=== PATIENT | female | born 1990 | race Caucasian/White ===

== ENCOUNTER 2016-11-20 20:51 | Emergency (ER) | payer OTHER ==
[~2016-11-20 20:51] MED LIST: /ESCI10TA PO; /QUET25TA PO; CELE50CA PO; CIPR-250 PO; DIAM500C PO; LEXAPRO PO; NORC5TAB PO; RELP20TA PO; RELPAX PO; SERO1TAB3 PO; SERO50TA PO; SEROQUEL PO; SOMA350T PO; TYLE325T5 PO; TYLE650T30 PO; ZANA2CAP PO; mirena IU
[2016-11-20] MEDS ORDERED: METOCLOPRAMIDE 10 MG TAB As Ordered ONE (22:59)
[2016-11-20] MEDS ORDERED: predniSONE 20 MG TAB As Ordered ONE (22:59)
[2016-11-20] MEDS ORDERED: NAPROXEN 250 MG TAB As Ordered ONE (22:59)
--- NOTE | 2016-11-20 23:31 | EDDOCDS ---
Nurse's Notes [facility] Name: Geeta Summers Age: 26 yrs Sex: Female : 1990 Arrival Date: 11/20/2016 Time: 20:51 Bed TR8 Private MD: [facility] [place] Diagnosis: Acute nasopharyngitis [common cold];Migraine Presentation: 11/20 20:58 Presenting complaint: Patient states: Sick since November 13--cough, stuffy nose, sore mcp throat. Today migraine headache started. This patient has no additional risk factors. Adult Sepsis Screening: The patient does not have new or worsening altered mentation. Patient's respiratory rate is less than 22. Systolic blood pressure is greater than 100. Patient has a qSOFA score of 0- Negative Sepsis Screen. Suicide/Homicide risk assessment- the patient denies having any suicidal and/or homicidal ideations and does not present with any other emotional, behavioral or mental health complaints. 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 Transition of care: patient was not received from another setting of care. 20:58 Acuity: BETTY Level 4 [facility] 20:58 Method Of Arrival: Walkin/Carried/Asstd [facility] Triage Assessment: 21:01 Headache History: This headache is like all previous headaches. General: Appears mcp uncomfortable, Behavior is cooperative. Pain: Location: head Pain currently is 9 out of 10 on a pain scale. Pain began this am Also complains of photophobia. HIV screening NA for this visit Offered previously. Neurological: Reports headache. Respiratory: Airway is patent Respiratory effort is even, unlabored. Derm: Skin is pink, warm & dry. 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 hydroxyzine HCl 25 mg Oral tab 1 tab 2. Lyrica Oral 50 mg 3 times per day 3. meloxicam 15 mg oral tab 1 tab once daily 4. Mirena 20 mcg/24 hr (5 years) intrauterine IUD 5. Prazosin Oral 1 cap nightly 6. propranolol 20 mg Oral tab 2 times per day 7. trazodone 50 mg oral tab 1 tab 2 times per day 8. Zanaflex 2 mg Oral cap every 6 hours - PMHx: Anxiety; Depression; Migraines; nerve pain chronic; tremors; - PSHx: brain surgery x3; Tonsillectomy; Breast Reduction; Endoscopy, Upper; - Social history: Smoking status: Patient uses tobacco products, light tobacco smoker. No barriers to communication noted, The patient speaks fluent Botswanan. - Family history: Not pertinent. - : The pt / caregiver states he / she is not on anticoagulants. Home medication list is obtained from the patient. - Exposure Risk Screening:: None identified. Screenin:56 Infection Control. [facility] 23:24 Screening information is obtained from the patient. Fall risk: No risks identified. [facility] Assistance ADL's: requires no assistance with activities of daily living. Abuse/DV Screen: The patient / caregiver reports he/she is: not in a situation that causes fear, pain or injury. Nutritional screening: No deficits noted. Advance Directives: There is no active DNR order. home support is adequate. Assessment: 23:24 General: Appears in no apparent distress, Behavior is crying, reviewed discharge [facility] instructions with patient who states 'the medications they gave me won't work' and "I can't believe they're going to let me leave with a migraine". related concerns to provider and provider visited patient again to review plan of care. discharged per plan. Pain: Location: head Pain currently is 10 out of 10 on a pain scale. Pain: Also complains of no other associated symptoms. Neurological: Level of Consciousness is awake, alert, Oriented to person, place, time. Respiratory: Airway is patent Respiratory effort is even, unlabored, Respiratory pattern is regular, symmetrical. Derm: Skin is pink, warm & dry. Vital Signs: 20:52 BP 142 / 89; Pulse 108; Resp 20; Temp 99.2(O); Pulse Ox 98% on R/A; Weight 90.72 kg; [facility] Height 5 ft. 2 in. (157.48 cm); Pain 9/10; 23:24 BP 124 / 77; Pulse 66; Resp 16; Temp 97.2; Pulse Ox 97% ; Pain 10/10; [facility] 20:52 Body Mass Index 36.58 (90.72 kg, 157.48 cm) [facility] Vitals: 20:52 Log In Time: November 20, 2016 at 20:47. [facility] ED Course: 20:52 Patient visited by Jeni Sierra PCA. elp 20:52 [facility] is Private Physician. elp 20:52 Patient moved to Waiting elp 20:54 Patient visited by Jeni Sierra PCA. elp 20:54 Patient moved to Pre RCE elp 20:59 Triage Initiated mcp 21:02 Patient visited by Tara Wise RN. mcp 22:49 Patient moved to Triage 2 jb5 22:50 Patient visited by Gail Mayfield PCA. jb5 22:51 [facility] cc[facility] 22:51 Pramod Jane DO is Attending Physician. cc10 22:51 Patient visited by Pawan Bowen PA-C. cc10 22:51 Patient visited by Pawan Bowen PA-C. cc10 22:56 [facility] is Referral Physician. cc10 23:22 Patient moved to TR8 cz 23:24 The patient / caregiver is instructed regarding the plan of care and ED course. [facility] 23:24 No IV's were initiated during this patient's visit. No procedures done that require [facility] assistance. Administered Medications: 23:10 Drug: Metoclopramide 10 mg [metoclopramide 10 mg tablet (1 tabs)] Route: PO; [facility] 23:30 Follow up: Response: Pt left department before re-evaluation is appropriate [facility] 23:10 Drug: Naproxen 500 mg [naproxen 250 mg tablet (2 tabs)] Route: PO; [facility] 23:30 Follow up: Response: Pt left department before re-evaluation is appropriate [facility] 23:10 Drug: predniSONE 20 mg Route: PO; [facility] 23:30 Follow up: Response: Pt left department before re-evaluation is appropriate [facility] Order Results: There are currently no results for this order. Outcome: 22:56 Discharge ordered by Provider. cc10 23:24 Discharge Assessment: Patient awake, alert and oriented x 3. No cognitive and/or cj functional deficits noted. Patient verbalized understanding of disposition instructions. patient administered narcotics - no. The following High Risk Discharge criteria are identified: None. Discharged to home ambulatory. Condition: good Condition: stable Condition: improved. Discharge instructions given to patient, Instructed on discharge instructions, follow up and referral plans. medication usage, Demonstrated understanding of instructions, medications, Patient was not receptive of discharge instructions. Other see general assessment note Prescriptions given X 3. No special radiology studies were completed. Property :Personal belongings accompany Pt. 23:30 Patient left the ED. [facility] Signatures: Tara Wise RN RN mcp Zecher, Calvin, Gail Jarvis RN, RN SURGICAL PCU RN SURGICAL PCU jb5 Regina Taylor RN RN [facility] Jeni Sierra, RN SURGICAL PCU RN SURGICAL PCU Pawan Devlin, PA-C PA-C cc10 MTDD
--- NOTE | 2016-11-20 23:31 | EDDOCDS ---
Physician Documentation [facility] Name: Geeta Summers Age: 26 yrs Sex: Female : 1990 Arrival Date: 11/20/2016 Time: 20:51 Bed TR8 Private MD: [facility] Disposition: 11/20/16 22:56 Discharged to Home/Self Care. Impression: Acute nasopharyngitis [common cold], Migraine. - Condition is Stable. - Discharge Instructions: Upper Respiratory Infection, Adult, Viral Infections, Cough, Adult, [id number]. - Prescriptions for ZOFRAN ODT 4 mg - dissolve 1 tablet by ORAL route 4 times per day As needed do not chew, do not swallow whole; 10 tablet. Prednisone 20 mg Oral Tablet - take 1 tablet by ORAL route once daily for 5 days; 5 tablet. Fluticasone 50 mcg/actuation Nasal [place], Suspension - inhale 2 spray by INTRANASAL route once daily; 1 bottle. - Medication Reconciliation form. - Follow up: Emergency Department; When: As needed. Follow up: [facility]; When: Call to arrange an appointment; Reason: Wound/Symptom Recheck, Recheck today's complaints, Worsening of conditions, Continuance of care. - Problem is new. - Symptoms are unchanged. Historical: - Allergies: Morphine (Swelling); - Home Meds: 1. hydroxyzine HCl 25 mg Oral tab 1 tab 2. Lyrica Oral 50 mg 3 times per day 3. meloxicam 15 mg oral tab 1 tab once daily 4. Mirena 20 mcg/24 hr (5 years) intrauterine IUD 5. Prazosin Oral 1 cap nightly 6. propranolol 20 mg Oral tab 2 times per day 7. trazodone 50 mg oral tab 1 tab 2 times per day 8. Zanaflex 2 mg Oral cap every 6 hours - PMHx: Anxiety; Depression; Migraines; nerve pain chronic; tremors; - PSHx: brain surgery x3; Tonsillectomy; Breast Reduction; Endoscopy, Upper; - Social history: Smoking status: Patient uses tobacco products, light tobacco smoker. No barriers to communication noted, The patient speaks fluent Czech. - Family history: Not pertinent. - : The pt / caregiver states he / she is not on anticoagulants. Home medication list is obtained from the patient. - Exposure Risk Screening:: None identified. 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 2 in. (157.48 cm); Pain 9/10; 23:24 BP 124 / 77; Pulse 66; Resp 16; Temp 97.2; Pulse Ox 97% ; Pain 10/10; cjh 20:52 Body Mass Index 36.58 (90.72 kg, 157.48 cm) elp MDM: 22:55 Metoclopramide 10 mg PO once ordered. cc10 22:55 Naproxen 500 mg PO once; administer with food or milk ordered. cc10 22:55 predniSONE 20 mg PO once; administer with food or milk ordered. cc10 Administered Medications: 23:10 Drug: Metoclopramide 10 mg [metoclopramide 10 mg tablet (1 tabs)] Route: PO; [facility] 23:30 Follow up: Response: Pt left department before re-evaluation is appropriate [facility] 23:10 Drug: Naproxen 500 mg [naproxen 250 mg tablet (2 tabs)] Route: PO; [facility] 23:30 Follow up: Response: Pt left department before re-evaluation is appropriate [facility] 23:10 Drug: predniSONE 20 mg Route: PO; [facility] 23:30 Follow up: Response: Pt left department before re-evaluation is appropriate [facility] Signatures: Tara Wise RN RN [facility] Regina Taylor RN RN [facility] Pawan Bowen, PADeonteC PA-C cc10 MTDD
--- NOTE | 2016-11-24 10:12 | EDDOCDS ---
Nurse's Notes [facility] Name: Geeta Summers Age: 26 yrs Sex: Female : 1990 Arrival Date: 11/20/2016 Time: 20:51 Bed TR8 Private MD: [facility] Diagnosis: Acute nasopharyngitis [common cold];Migraine Presentation: 11/20 20:58 Presenting complaint: Patient states: Sick since November 13--cough, stuffy nose, sore mcp throat. Today migraine headache started. This patient has no additional risk factors. Adult Sepsis Screening: The patient does not have new or worsening altered mentation. Patient's respiratory rate is less than 22. Systolic blood pressure is greater than 100. Patient has a qSOFA score of 0- Negative Sepsis Screen. Suicide/Homicide risk assessment- the patient denies having any suicidal and/or homicidal ideations and does not present with any other emotional, behavioral or mental health complaints. 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 Transition of care: patient was not received from another setting of care. 20:58 Acuity: BETTY Level 4 [facility] 20:58 Method Of Arrival: Walkin/Carried/Asstd [facility] Triage Assessment: 21:01 Headache History: This headache is like all previous headaches. General: Appears mcp uncomfortable, Behavior is cooperative. Pain: Location: head Pain currently is 9 out of 10 on a pain scale. Pain began this am Also complains of photophobia. HIV screening NA for this visit Offered previously. Neurological: Reports headache. Respiratory: Airway is patent Respiratory effort is even, unlabored. Derm: Skin is pink, warm & dry. 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 hydroxyzine HCl 25 mg Oral tab 1 tab 2. Lyrica Oral 50 mg 3 times per day 3. meloxicam 15 mg oral tab 1 tab once daily 4. Mirena 20 mcg/24 hr (5 years) intrauterine IUD 5. Prazosin Oral 1 cap nightly 6. propranolol 20 mg Oral tab 2 times per day 7. trazodone 50 mg oral tab 1 tab 2 times per day 8. Zanaflex 2 mg Oral cap every 6 hours - PMHx: Anxiety; Depression; Migraines; nerve pain chronic; tremors; - PSHx: brain surgery x3; Tonsillectomy; Breast Reduction; Endoscopy, Upper; - Social history: Smoking status: Patient uses tobacco products, light tobacco smoker. No barriers to communication noted, The patient speaks fluent Zambian. - Family history: Not pertinent. - : The pt / caregiver states he / she is not on anticoagulants. Home medication list is obtained from the patient. - Exposure Risk Screening:: None identified. Screenin:56 Infection Control. [facility] 23:24 Screening information is obtained from the patient. Fall risk: No risks identified. [facility] Assistance ADL's: requires no assistance with activities of daily living. Abuse/DV Screen: The patient / caregiver reports he/she is: not in a situation that causes fear, pain or injury. Nutritional screening: No deficits noted. Advance Directives: There is no active DNR order. home support is adequate. Assessment: 23:24 General: Appears in no apparent distress, Behavior is crying, reviewed discharge [facility] instructions with patient who states 'the medications they gave me won't work' and "I can't believe they're going to let me leave with a migraine". related concerns to provider and provider visited patient again to review plan of care. discharged per plan. Pain: Location: head Pain currently is 10 out of 10 on a pain scale. Pain: Also complains of no other associated symptoms. Neurological: Level of Consciousness is awake, alert, Oriented to person, place, time. Respiratory: Airway is patent Respiratory effort is even, unlabored, Respiratory pattern is regular, symmetrical. Derm: Skin is pink, warm & dry. Vital Signs: 20:52 BP 142 / 89; Pulse 108; Resp 20; Temp 99.2(O); Pulse Ox 98% on R/A; Weight 90.72 kg; [facility] Height 5 ft. 2 in. (157.48 cm); Pain 9/10; 23:24 BP 124 / 77; Pulse 66; Resp 16; Temp 97.2; Pulse Ox 97% ; Pain 10/10; [facility] 20:52 Body Mass Index 36.58 (90.72 kg, 157.48 cm) [facility] Vitals: 20:52 Log In Time: November 20, 2016 at 20:47. [facility] ED Course: 20:52 Patient visited by Jeni Sierra PCA. elp 20:52 [facility] is Private Physician. elp 20:52 Patient moved to Waiting elp 20:54 Patient visited by Jeni Sierra PCA. elp 20:54 Patient moved to Pre RCE elp 20:59 Triage Initiated mcp 21:02 Patient visited by Tara Wise RN. mcp 22:49 Patient moved to Triage 2 jb5 22:50 Patient visited by Gail Mayfield PCA. jb5 22:51 [facility] Bowen [facility] cc[facility] 22:51 Pramod Jane DO is Attending Physician. cc10 22:51 Patient visited by Pawan Bowen PA-C. cc10 22:51 Patient visited by Pawan Bowen PA-C. cc10 22:56 [facility] is Referral Physician. cc10 23:22 Patient moved to TR8 cz 23:24 The patient / caregiver is instructed regarding the plan of care and ED course. [facility] 23:24 No IV's were initiated during this patient's visit. No procedures done that require [facility] assistance. 11/21 08:13 T-Sheet-- Draft Copy was scanned into [employer] and attached to record. [facility] Administered Medications: 11/20 23:10 Drug: Metoclopramide 10 mg [metoclopramide 10 mg tablet (1 tabs)] Route: PO; [facility] 23:30 Follow up: Response: Pt left department before re-evaluation is appropriate [facility] 23:10 Drug: Naproxen 500 mg [naproxen 250 mg tablet (2 tabs)] Route: PO; [facility] 23:30 Follow up: Response: Pt left department before re-evaluation is appropriate [facility] 23:10 Drug: predniSONE 20 mg Route: PO; [facility] 23:30 Follow up: Response: Pt left department before re-evaluation is appropriate [facility] Order Results: There are currently no results for this order. Outcome: 22:56 Discharge ordered by Provider. cc 23:24 Discharge Assessment: Patient awake, alert and oriented x 3. No cognitive and/or cjh functional deficits noted. Patient verbalized understanding of disposition instructions. patient administered narcotics - no. The following High Risk Discharge criteria are identified: None. Discharged to home ambulatory. Condition: good Condition: stable Condition: improved. Discharge instructions given to patient, Instructed on discharge instructions, follow up and referral plans. medication usage, Demonstrated understanding of instructions, medications, Patient was not receptive of discharge instructions. Other see general assessment note Prescriptions given X 3. No special radiology studies were completed. Property :Personal belongings accompany Pt. 23:30 Patient left the ED. [facility] Signatures: Tara Wise RN RN mcp Zecher, Calvin, RN RN cz Baker, Janet, NETWORK ADMINISTRATOR NETWORK ADMINISTRATOR jb5 Regina Taylor RN RN [facility] Jeni Sierra, NETWORK ADMINISTRATOR NETWORK ADMINISTRATOR elp Pawan Bowen, PA-C PA-C cc10 Pham Jaquez Chart Complete MTDD
--- NOTE | 2016-11-24 10:12 | EDDOCDS ---
Physician Documentation [facility] Name: Geeta Summers Age: 26 yrs Sex: Female : 1990 Arrival Date: 11/20/2016 Time: 20:51 Bed TR8 Private MD: [facility] Disposition: 11/20/16 22:56 Discharged to Home/Self Care. Impression: Acute nasopharyngitis [common cold], Migraine. - Condition is Stable. - Discharge Instructions: Upper Respiratory Infection, Adult, Viral Infections, Cough, Adult, [id number]. - Prescriptions for ZOFRAN ODT 4 mg - dissolve 1 tablet by ORAL route 4 times per day As needed do not chew, do not swallow whole; 10 tablet. Prednisone 20 mg Oral Tablet - take 1 tablet by ORAL route once daily for 5 days; 5 tablet. Fluticasone 50 mcg/actuation Nasal [place], Suspension - inhale 2 spray by INTRANASAL route once daily; 1 bottle. - Medication Reconciliation form. - Follow up: Emergency Department; When: As needed. Follow up: [facility]; When: Call to arrange an appointment; Reason: Wound/Symptom Recheck, Recheck today's complaints, Worsening of conditions, Continuance of care. - Problem is new. - Symptoms are unchanged. Historical: - Allergies: Morphine (Swelling); - Home Meds: 1. hydroxyzine HCl 25 mg Oral tab 1 tab 2. Lyrica Oral 50 mg 3 times per day 3. meloxicam 15 mg oral tab 1 tab once daily 4. Mirena 20 mcg/24 hr (5 years) intrauterine IUD 5. Prazosin Oral 1 cap nightly 6. propranolol 20 mg Oral tab 2 times per day 7. trazodone 50 mg oral tab 1 tab 2 times per day 8. Zanaflex 2 mg Oral cap every 6 hours - PMHx: Anxiety; Depression; Migraines; nerve pain chronic; tremors; - PSHx: brain surgery x3; Tonsillectomy; Breast Reduction; Endoscopy, Upper; - Social history: Smoking status: Patient uses tobacco products, light tobacco smoker. No barriers to communication noted, The patient speaks fluent Indonesian. - Family history: Not pertinent. - : The pt / caregiver states he / she is not on anticoagulants. Home medication list is obtained from the patient. - Exposure Risk Screening:: None identified. 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 2 in. (157.48 cm); Pain 9/10; 23:24 BP 124 / 77; Pulse 66; Resp 16; Temp 97.2; Pulse Ox 97% ; Pain 10/10; cjh 20:52 Body Mass Index 36.58 (90.72 kg, 157.48 cm) elp MDM: 22:55 Metoclopramide 10 mg PO once ordered. cc10 22:55 Naproxen 500 mg PO once; administer with food or milk ordered. cc10 22:55 predniSONE 20 mg PO once; administer with food or milk ordered. cc10 11/21 08:13 T-Sheet-- Draft Copy was scanned into [employer] and attached to record. se Administered Medications: 11/20 23:10 Drug: Metoclopramide 10 mg [metoclopramide 10 mg tablet (1 tabs)] Route: PO; [facility] 23:30 Follow up: Response: Pt left department before re-evaluation is appropriate [facility] 23:10 Drug: Naproxen 500 mg [naproxen 250 mg tablet (2 tabs)] Route: PO; [facility] 23:30 Follow up: Response: Pt left department before re-evaluation is appropriate [facility] 23:10 Drug: predniSONE 20 mg Route: PO; [facility] 23:30 Follow up: Response: Pt left department before re-evaluation is appropriate [facility] Signatures: Tara Wise RN RN [facility] Regina Taylor RN RN [facility] Pawan Bowen, PAErwin PADeonteC [facility] Pham Jaquez [facility] The chart was reviewed and I authenticate all verbal orders and agree with the evaluation and treatment provided.Attachments: 11/21 08:13 T-Sheet-- Draft Copy [facility] Chart Complete MTDD
--- NOTE | 2016-11-24 10:12 | EDDOCDS ---
Physician Documentation [facility] Name: Geeta Summers Age: 26 yrs Sex: Female : 1990 Arrival Date: 11/20/2016 Time: 20:51 Bed TR8 Private MD: [facility] Disposition: 11/20/16 22:56 Discharged to Home/Self Care. Impression: Acute nasopharyngitis [common cold], Migraine. - Condition is Stable. - Discharge Instructions: Upper Respiratory Infection, Adult, Viral Infections, Cough, Adult, [id number]. - Prescriptions for ZOFRAN ODT 4 mg - dissolve 1 tablet by ORAL route 4 times per day As needed do not chew, do not swallow whole; 10 tablet. Prednisone 20 mg Oral Tablet - take 1 tablet by ORAL route once daily for 5 days; 5 tablet. Fluticasone 50 mcg/actuation Nasal [place], Suspension - inhale 2 spray by INTRANASAL route once daily; 1 bottle. - Medication Reconciliation form. - Follow up: Emergency Department; When: As needed. Follow up: [facility]; When: Call to arrange an appointment; Reason: Wound/Symptom Recheck, Recheck today's complaints, Worsening of conditions, Continuance of care. - Problem is new. - Symptoms are unchanged. Historical: - Allergies: Morphine (Swelling); - Home Meds: 1. hydroxyzine HCl 25 mg Oral tab 1 tab 2. Lyrica Oral 50 mg 3 times per day 3. meloxicam 15 mg oral tab 1 tab once daily 4. Mirena 20 mcg/24 hr (5 years) intrauterine IUD 5. Prazosin Oral 1 cap nightly 6. propranolol 20 mg Oral tab 2 times per day 7. trazodone 50 mg oral tab 1 tab 2 times per day 8. Zanaflex 2 mg Oral cap every 6 hours - PMHx: Anxiety; Depression; Migraines; nerve pain chronic; tremors; - PSHx: brain surgery x3; Tonsillectomy; Breast Reduction; Endoscopy, Upper; - Social history: Smoking status: Patient uses tobacco products, light tobacco smoker. No barriers to communication noted, The patient speaks fluent Icelandic. - Family history: Not pertinent. - : The pt / caregiver states he / she is not on anticoagulants. Home medication list is obtained from the patient. - Exposure Risk Screening:: None identified. 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 2 in. (157.48 cm); Pain 9/10; 23:24 BP 124 / 77; Pulse 66; Resp 16; Temp 97.2; Pulse Ox 97% ; Pain 10/10; cjh 20:52 Body Mass Index 36.58 (90.72 kg, 157.48 cm) elp MDM: 22:55 Metoclopramide 10 mg PO once ordered. cc10 22:55 Naproxen 500 mg PO once; administer with food or milk ordered. cc10 22:55 predniSONE 20 mg PO once; administer with food or milk ordered. cc10 11/21 08:13 T-Sheet-- Draft Copy was scanned into [employer] and attached to record. se Administered Medications: 11/20 23:10 Drug: Metoclopramide 10 mg [metoclopramide 10 mg tablet (1 tabs)] Route: PO; [facility] 23:30 Follow up: Response: Pt left department before re-evaluation is appropriate [facility] 23:10 Drug: Naproxen 500 mg [naproxen 250 mg tablet (2 tabs)] Route: PO; [facility] 23:30 Follow up: Response: Pt left department before re-evaluation is appropriate [facility] 23:10 Drug: predniSONE 20 mg Route: PO; [facility] 23:30 Follow up: Response: Pt left department before re-evaluation is appropriate [facility] Signatures: Tara Wise RN RN [facility] Regina Taylor RN RN [facility] Pawan Bowen, PAErwin PADeonteC [facility] Pham Jaquez [facility] The chart was reviewed and I authenticate all verbal orders and agree with the evaluation and treatment provided.Attachments: 11/21 08:13 T-Sheet-- Draft Copy [facility] Chart Complete MTDD
== END 2016-11-20 23:30 | disposition home or self-care (01) ==
LOC: M ED 20:51
DX: J06.9 Acute upper respiratory infection, unspecified (principal); F41.9 Anxiety disorder, unspecified; F32.9 Major depressive disorder, single episode, unspecified; G52.9 Cranial nerve disorder, unspecified; G43.909 Migraine, unspecified, not intractable, without status migrainosus; R25.1 Tremor, unspecified; Z72.0 Tobacco use; Z79.899 Other long term (current) drug therapy; Z88.5 Allergy status to narcotic agent

== ENCOUNTER 2016-12-13 21:27 | Emergency (ER) | payer OTHER ==
[2016-12-13] MEDS ORDERED: OSELTAMIVIR PHOSPHATE 75 MG CAP (TAMIFLU) As Ordered ONE (22:14)
--- NOTE | 2016-12-13 22:27 | EDDOCDS ---
Nurse's Notes [facility] Name: Geeta Summers Age: 26 yrs Sex: Female : 1990 Arrival Date: 12/13/2016 Time: 21:27 Bed 8 Private MD: Diagnosis: Influenza due to unidentified influenza virus Presentation: 12/13 21:33 Presenting complaint: Patient states: cough, cold chills for few days. exposure to sick rs3 contacts at work. Adult Sepsis Screening: The patient does not have new or worsening altered mentation. Patient's respiratory rate is less than 22. Systolic blood pressure is greater than 100. Patient has a qSOFA score of 0- Negative Sepsis Screen. Suicide/Homicide risk assessment- the patient denies having any suicidal and/or homicidal ideations and does not present with any other emotional, behavioral or mental health complaints. Status: retired. Transition of care:. 21:33 Acuity: BETTY Level 4 rs3 21:33 Method Of Arrival: Walkin/Carried/Asstd rs3 Triage Assessment: 21:34 General: Appears in no apparent distress. Pain: Location: chest. HIV screening NA for rs3 this visit Offered previously. 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 hydroxyzine HCl 25 mg Oral tab 1 tab 2. Lyrica Oral 50 mg 3 times per day 3. meloxicam 15 mg oral tab 1 tab once daily 4. Mirena 20 mcg/24 hr (5 years) intrauterine IUD 5. Prazosin Oral 1 cap nightly 6. propranolol 20 mg Oral tab 2 times per day 7. trazodone 50 mg Oral tab 1 tab 2 times per day 8. Zanaflex 2 mg Oral cap every 6 hours - PMHx: Anxiety; Depression; Migraines; nerve pain chronic; tremors; - PSHx: brain surgery x3; Tonsillectomy; Breast Reduction; Endoscopy, Upper; - Social history: Smoking status: Patient uses tobacco products, light tobacco smoker. No barriers to communication noted, The patient speaks fluent Syriac. - Family history: Not pertinent. - : The pt / caregiver states he / she is not on anticoagulants. Home medication list is obtained from the patient. - Exposure Risk Screening:: None identified. Screenin:22 Screening information is obtained from the patient. Fall risk: No risks identified. sls1 Assistance ADL's: requires no assistance with activities of daily living. Abuse/DV Screen: The patient / caregiver reports he/she is: not in a situation that causes fear, pain or injury. Nutritional screening: No deficits noted. Advance Directives: Further advance directive information is declined. home support is adequate. Assessment: 22:22 General: Appears in no apparent distress, Behavior is appropriate for age, cooperative, sls1 First encounter with pt, medicated per order, discharge instructions reviewed with pt including medication use, use of tylenol and motrin for fever fluids encouraged, verbalizes understanding of all instructions. Neurological: Level of Consciousness is awake, alert. Respiratory: Airway is patent Respiratory effort is even, unlabored, Respiratory pattern is regular, symmetrical. Derm: No deficits noted. Vital Signs: 21:28 BP 113 / 68; Pulse 120; Resp 20; Temp 99.1(O); Pulse Ox 99% on R/A; Weight 90.72 kg arleen (R); Height 5 ft. 1 in. (154.94 cm) (R); Pain 7/10; 22:22 BP 114 / 62; Pulse 104; Resp 20; Temp 98.1; Pulse Ox 99% on R/A; sls1 21:28 Body Mass Index 37.79 (90.72 kg, 154.94 cm) arleen Vitals: 21:28 Log In Time: December 13, 2016 at 21:15. arleen ED Course: 21:28 Patient visited by Mala Bhat PCA. arleen 21:28 Patient moved to Waiting arleen 21:29 Patient moved to Pre RCE arleen 21:34 Triage Initiated rs3 21:41 [facility] ke 21:41 Patient visited by Ceasar Smith FNP. ke 21:41 Patient visited by Ceasar Smith FNP. ke 21:41 Patient moved to 8 km 22:22 The patient / caregiver is instructed regarding the plan of care and ED course. Patient sls1 has correct armband on for positive identification. 22:22 No IV's were initiated during this patient's visit. No procedures done that require sls1 assistance. Administered Medications: 22:22 Drug: Oseltamivir 75 mg [oseltamivir 75 mg capsule (1 caps)] Route: PO; sls1 22:26 Follow up: Response: Pt left department before re-evaluation is appropriate sls1 Order Results: There are currently no results for this order. Outcome: 22:10 Discharge ordered by Provider. 22:22 Discharge Assessment: Patient awake, alert and oriented x 3. No cognitive and/or sls1 functional deficits noted. Patient verbalized understanding of disposition instructions. patient administered narcotics - no. The following High Risk Discharge criteria are identified: None. Discharged to home ambulatory. Condition: stable. Discharge instructions given to patient, Instructed on discharge instructions, follow up and referral plans. Demonstrated understanding of instructions, medications, Pt was receptive of discharge instructions/ teaching. Prescriptions given X 1. No special radiology studies were completed. Property sent home with patient. 22:[address] [facility] Signatures: Carlota Magdaleno, RN RN kmg1 Ceasar Smith, CLOTH BLEACHING RANGE TENDER CLOTH BLEACHING RANGE TENDER Paula WahlRN RN rs3 Mala Bhat, DESSERT CUP MACHINE FEEDER DESSERT CUP MACHINE FEEDER Latonia Rosas RN RN sls1 MTDAva
--- NOTE | 2016-12-13 22:27 | EDDOCDS ---
Physician Documentation [facility] Name: Geeta Summers Age: 26 yrs Sex: Female : 1990 Arrival Date: 12/13/2016 Time: 21:27 Bed 8 Private MD: Disposition: 12/13/16 22:10 Discharged to Home/Self Care. Impression: Influenza due to unidentified influenza virus. - Condition is Stable. - Discharge Instructions: Influenza, Adult. - Prescriptions for Tamiflu 75 mg Oral Capsule - take 1 capsule by ORAL route every 12 hours for 5 days; 10 capsule. - Medication Reconciliation, Local Pharmacy Hours form. - Follow up: Private Physician; When: 4 - 5 days; Reason: Recheck today's complaints, Continuance of care. - Problem is an ongoing problem. - Symptoms are unchanged. Historical: - Allergies: Morphine (Swelling); - Home Meds: 1. hydroxyzine HCl 25 mg Oral tab 1 tab 2. Lyrica Oral 50 mg 3 times per day 3. meloxicam 15 mg oral tab 1 tab once daily 4. Mirena 20 mcg/24 hr (5 years) intrauterine IUD 5. Prazosin Oral 1 cap nightly 6. propranolol 20 mg Oral tab 2 times per day 7. trazodone 50 mg Oral tab 1 tab 2 times per day 8. Zanaflex 2 mg Oral cap every 6 hours - PMHx: Anxiety; Depression; Migraines; nerve pain chronic; tremors; - PSHx: brain surgery x3; Tonsillectomy; Breast Reduction; Endoscopy, Upper; - Social history: Smoking status: Patient uses tobacco products, light tobacco smoker. No barriers to communication noted, The patient speaks fluent Venezuelan. - Family history: Not pertinent. - : The pt / caregiver states he / she is not on anticoagulants. Home medication list is obtained from the patient. - Exposure Risk Screening:: None identified. 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 1 in. (154.94 cm) (R); Pain 7/10; 22:22 BP 114 / 62; Pulse 104; Resp 20; Temp 98.1; Pulse Ox 99% on R/A; sls1 21:28 Body Mass Index 37.79 (90.72 kg, 154.94 cm) arleen MDM: 21:59 Oseltamivir 75 mg PO once ordered. ke Administered Medications: 22:22 Drug: Oseltamivir 75 mg [oseltamivir 75 mg capsule (1 caps)] Route: PO; sls1 22:26 Follow up: Response: Pt left department before re-evaluation is appropriate [facility] Signatures: Ceasar Smith, CLAIM TAKER Paula DeckerRN RN rs3 Latonia Claudio RN RN sls1 MTDD
--- NOTE | 2016-12-15 23:27 | EDDOCDS ---
Nurse's Notes [facility] Name: Geeta Summers Age: 26 yrs Sex: Female : 1990 Arrival Date: 12/13/2016 Time: 21:27 Bed 8 Private MD: Diagnosis: Influenza due to unidentified influenza virus Presentation: 12/13 21:33 Presenting complaint: Patient states: cough, cold chills for few days. exposure to sick rs3 contacts at work. Adult Sepsis Screening: The patient does not have new or worsening altered mentation. Patient's respiratory rate is less than 22. Systolic blood pressure is greater than 100. Patient has a qSOFA score of 0- Negative Sepsis Screen. Suicide/Homicide risk assessment- the patient denies having any suicidal and/or homicidal ideations and does not present with any other emotional, behavioral or mental health complaints. Status: retired. Transition of care:. 21:33 Acuity: BETTY Level 4 rs3 21:33 Method Of Arrival: Walkin/Carried/Asstd rs3 Triage Assessment: 21:34 General: Appears in no apparent distress. Pain: Location: chest. HIV screening NA for rs3 this visit Offered previously. 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 hydroxyzine HCl 25 mg Oral tab 1 tab 2. Lyrica Oral 50 mg 3 times per day 3. meloxicam 15 mg oral tab 1 tab once daily 4. Mirena 20 mcg/24 hr (5 years) intrauterine IUD 5. Prazosin Oral 1 cap nightly 6. propranolol 20 mg Oral tab 2 times per day 7. trazodone 50 mg Oral tab 1 tab 2 times per day 8. Zanaflex 2 mg Oral cap every 6 hours - PMHx: Anxiety; Depression; Migraines; nerve pain chronic; tremors; - PSHx: brain surgery x3; Tonsillectomy; Breast Reduction; Endoscopy, Upper; - Social history: Smoking status: Patient uses tobacco products, light tobacco smoker. No barriers to communication noted, The patient speaks fluent Kazakh. - Family history: Not pertinent. - : The pt / caregiver states he / she is not on anticoagulants. Home medication list is obtained from the patient. - Exposure Risk Screening:: None identified. Screenin:22 Screening information is obtained from the patient. Fall risk: No risks identified. sls1 Assistance ADL's: requires no assistance with activities of daily living. Abuse/DV Screen: The patient / caregiver reports he/she is: not in a situation that causes fear, pain or injury. Nutritional screening: No deficits noted. Advance Directives: Further advance directive information is declined. home support is adequate. Assessment: 22:22 General: Appears in no apparent distress, Behavior is appropriate for age, cooperative, sls1 First encounter with pt, medicated per order, discharge instructions reviewed with pt including medication use, use of tylenol and motrin for fever fluids encouraged, verbalizes understanding of all instructions. Neurological: Level of Consciousness is awake, alert. Respiratory: Airway is patent Respiratory effort is even, unlabored, Respiratory pattern is regular, symmetrical. Derm: No deficits noted. Vital Signs: 21:28 BP 113 / 68; Pulse 120; Resp 20; Temp 99.1(O); Pulse Ox 99% on R/A; Weight 90.72 kg arleen (R); Height 5 ft. 1 in. (154.94 cm) (R); Pain 7/10; 22:22 BP 114 / 62; Pulse 104; Resp 20; Temp 98.1; Pulse Ox 99% on R/A; sls1 21:28 Body Mass Index 37.79 (90.72 kg, 154.94 cm) arleen Vitals: 21:28 Log In Time: December 13, 2016 at 21:15. arleen ED Course: 21:28 Patient visited by Mala Bhat PCA. arleen 21:28 Patient moved to Waiting arleen 21:29 Patient moved to Pre RCE arleen 21:34 Triage Initiated rs3 21:41 [facility] ke 21:41 Patient visited by Ceasar Smith FNP. ke 21:41 Patient visited by Ceasar Smith FNP. ke 21:41 Patient moved to 8 km 22:22 The patient / caregiver is instructed regarding the plan of care and ED course. Patient sls1 has correct armband on for positive identification. 22:22 No IV's were initiated during this patient's visit. No procedures done that require sls1 assistance. 12/14 11:41 T-Sheet-- Draft Copy was scanned into [employer] and attached to record. gb Administered Medications: 12/13 22:22 Drug: Oseltamivir 75 mg [oseltamivir 75 mg capsule (1 caps)] Route: PO; sls1 22:26 Follow up: Response: Pt left department before re-evaluation is appropriate sls1 Order Results: There are currently no results for this order. Outcome: 22:10 Discharge ordered by Provider. ke 22:22 Discharge Assessment: Patient awake, alert and oriented x 3. No cognitive and/or sls1 functional deficits noted. Patient verbalized understanding of disposition instructions. patient administered narcotics - no. The following High Risk Discharge criteria are identified: None. Discharged to home ambulatory. Condition: stable. Discharge instructions given to patient, Instructed on discharge instructions, follow up and referral plans. Demonstrated understanding of instructions, medications, Pt was receptive of discharge instructions/ teaching. Prescriptions given X 1. No special radiology studies were completed. Property sent home with patient. 22:26 Patient left the ED. sls1 Signatures: Carlota Magdaleno, RN RN kmg1 Kaylee Daugherty, Reg Reg Ceasar Smith, OPTICAL EFFECTS LINE UP PERSON OPTICAL EFFECTS LINE UP PERSON Paula Wahl,RN RN rs3 Mala Bhat, WIRE HARNESS ASSEMBLER WIRE HARNESS ASSEMBLER Latonia Rosas, RN RN sls1 Chart Complete MTDD
--- NOTE | 2016-12-15 23:27 | EDDOCDS ---
Physician Documentation [facility] Name: Geeta Summers Age: 26 yrs Sex: Female : 1990 Arrival Date: 12/13/2016 Time: 21:27 Bed 8 Private MD: Disposition: 12/13/16 22:10 Discharged to Home/Self Care. Impression: Influenza due to unidentified influenza virus. - Condition is Stable. - Discharge Instructions: Influenza, Adult. - Prescriptions for Tamiflu 75 mg Oral Capsule - take 1 capsule by ORAL route every 12 hours for 5 days; 10 capsule. - Medication Reconciliation, Local Pharmacy Hours form. - Follow up: Private Physician; When: 4 - 5 days; Reason: Recheck today's complaints, Continuance of care. - Problem is an ongoing problem. - Symptoms are unchanged. Historical: - Allergies: Morphine (Swelling); - Home Meds: 1. hydroxyzine HCl 25 mg Oral tab 1 tab 2. Lyrica Oral 50 mg 3 times per day 3. meloxicam 15 mg oral tab 1 tab once daily 4. Mirena 20 mcg/24 hr (5 years) intrauterine IUD 5. Prazosin Oral 1 cap nightly 6. propranolol 20 mg Oral tab 2 times per day 7. trazodone 50 mg Oral tab 1 tab 2 times per day 8. Zanaflex 2 mg Oral cap every 6 hours - PMHx: Anxiety; Depression; Migraines; nerve pain chronic; tremors; - PSHx: brain surgery x3; Tonsillectomy; Breast Reduction; Endoscopy, Upper; - Social history: Smoking status: Patient uses tobacco products, light tobacco smoker. No barriers to communication noted, The patient speaks fluent Marshallese. - Family history: Not pertinent. - : The pt / caregiver states he / she is not on anticoagulants. Home medication list is obtained from the patient. - Exposure Risk Screening:: None identified. 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 1 in. (154.94 cm) (R); Pain 7/10; 22:22 BP 114 / 62; Pulse 104; Resp 20; Temp 98.1; Pulse Ox 99% on R/A; sls1 21:28 Body Mass Index 37.79 (90.72 kg, 154.94 cm) arleen MDM: 21:59 Oseltamivir 75 mg PO once ordered. ke 12/14 11:41 T-Sheet-- Draft Copy was scanned into [employer] and attached to record. gb Administered Medications: 12/13 22:22 Drug: Oseltamivir 75 mg [oseltamivir 75 mg capsule (1 caps)] Route: PO; sls1 22:26 Follow up: Response: Pt left department before re-evaluation is appropriate [facility] Signatures: Kaylee Daugherty, Reg Reg gb Ceasar Smith, MARKET RISK SPECIALIST MARKET RISK SPECIALIST Paula WahlRN RN rs3 Latonia Claudio RN RN sls1 The chart was reviewed and I authenticate all verbal orders and agree with the evaluation and treatment provided.Attachments: 12/14 11:41 T-Sheet-- Draft Copy gb Chart Complete MTDD
--- NOTE | 2016-12-15 23:27 | EDDOCDS ---
Physician Documentation [facility] Name: Geeta Summers Age: 26 yrs Sex: Female : 1990 Arrival Date: 12/13/2016 Time: 21:27 Bed 8 Private MD: Disposition: 12/13/16 22:10 Discharged to Home/Self Care. Impression: Influenza due to unidentified influenza virus. - Condition is Stable. - Discharge Instructions: Influenza, Adult. - Prescriptions for Tamiflu 75 mg Oral Capsule - take 1 capsule by ORAL route every 12 hours for 5 days; 10 capsule. - Medication Reconciliation, Local Pharmacy Hours form. - Follow up: Private Physician; When: 4 - 5 days; Reason: Recheck today's complaints, Continuance of care. - Problem is an ongoing problem. - Symptoms are unchanged. Historical: - Allergies: Morphine (Swelling); - Home Meds: 1. hydroxyzine HCl 25 mg Oral tab 1 tab 2. Lyrica Oral 50 mg 3 times per day 3. meloxicam 15 mg oral tab 1 tab once daily 4. Mirena 20 mcg/24 hr (5 years) intrauterine IUD 5. Prazosin Oral 1 cap nightly 6. propranolol 20 mg Oral tab 2 times per day 7. trazodone 50 mg Oral tab 1 tab 2 times per day 8. Zanaflex 2 mg Oral cap every 6 hours - PMHx: Anxiety; Depression; Migraines; nerve pain chronic; tremors; - PSHx: brain surgery x3; Tonsillectomy; Breast Reduction; Endoscopy, Upper; - Social history: Smoking status: Patient uses tobacco products, light tobacco smoker. No barriers to communication noted, The patient speaks fluent South African. - Family history: Not pertinent. - : The pt / caregiver states he / she is not on anticoagulants. Home medication list is obtained from the patient. - Exposure Risk Screening:: None identified. 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 1 in. (154.94 cm) (R); Pain 7/10; 22:22 BP 114 / 62; Pulse 104; Resp 20; Temp 98.1; Pulse Ox 99% on R/A; sls1 21:28 Body Mass Index 37.79 (90.72 kg, 154.94 cm) arleen MDM: 21:59 Oseltamivir 75 mg PO once ordered. ke 12/14 11:41 T-Sheet-- Draft Copy was scanned into [employer] and attached to record. gb Administered Medications: 12/13 22:22 Drug: Oseltamivir 75 mg [oseltamivir 75 mg capsule (1 caps)] Route: PO; sls1 22:26 Follow up: Response: Pt left department before re-evaluation is appropriate [facility] Signatures: Kaylee Daugherty, Reg Reg gb Ceasar Smith, PROJECT GEOPHYSICIST PROJECT GEOPHYSICIST Paula WahlRN RN rs3 Latonia Claudio RN RN sls1 The chart was reviewed and I authenticate all verbal orders and agree with the evaluation and treatment provided.Attachments: 12/14 11:41 T-Sheet-- Draft Copy gb Chart Complete MTDD
== END 2016-12-13 22:26 | disposition home or self-care (01) ==
LOC: M ED 21:27
DX: J11.1 Influenza due to unidentified influenza virus with other respiratory manifestations (principal); F41.9 Anxiety disorder, unspecified; F32.9 Major depressive disorder, single episode, unspecified; M79.2 Neuralgia and neuritis, unspecified; R25.1 Tremor, unspecified; Z79.899 Other long term (current) drug therapy; Z88.5 Allergy status to narcotic agent

== ENCOUNTER 2017-02-19 20:26 | Emergency (ER) | payer OTHER ==
[~2017-02-19] VITALS: Ht 157.5 cm; Wt 90.7 kg
[2017-02-19] MEDS ORDERED: PRAZ1CAP (20:36)
[2017-02-19] MEDS ORDERED: ZOLO100T (20:36)
[2017-02-19] MEDS ORDERED: HYDR10T (20:36)
[2017-02-19] MEDS ORDERED: TRAZ50TA4 (20:36)
[2017-02-19] MEDS ORDERED: PREG50CA PO (20:36)
[2017-02-20 01:18] VITALS: BP 137/84
[2017-02-20] MEDS ORDERED: HYDROmorphone HCL 1 MG/ML SYRINGE (J1170) IV ONE ×2 (01:30→03:30)
[2017-02-20] MEDS ORDERED: diphenhydrAMINE INJ 50MG/ML VIAL (J1200) IV ONE ×2 (01:30→03:30)
[2017-02-20] MEDS ORDERED: METOCLOPRAMIDE INJ 10MG/2ML VIAL (J2765) IV ONE ×2 (01:30→03:30)
[2017-02-20] MEDS ORDERED: KETOROLAC 30 MG/ML VIAL (J1885) IV ONE (01:30)
[2017-02-20] MEDS ORDERED: NS 1,000 ML IV ONE (04:15)
== END 2017-02-20 05:19 | disposition home or self-care (01) ==
LOC: M ED 21:45
DX: G43.909 Migraine, unspecified, not intractable, without status migrainosus (principal); Z79.899 Other long term (current) drug therapy; Z97.5 Presence of (intrauterine) contraceptive device; Z91.018 Allergy to other foods; Z88.5 Allergy status to narcotic agent; F17.210 Nicotine dependence, cigarettes, uncomplicated
CPT/HCPCS: 96374; 96375; 96376; 99282; J1170; J1200; J1885; J2765

== ENCOUNTER 2017-04-26 21:02 | Emergency (ER) | payer OTHER ==
[~2017-04-26] VITALS: Ht 160 cm; Wt 97.7 kg
[~2017-04-26 21:02] MED LIST changes: +HYDR10T; +PRAZ1CAP; +PREG50CA PO; +TRAZ50TA4; +ZOLO100T PO
[2017-04-27] MEDS ORDERED: diphenhydrAMINE INJ 50MG/ML VIAL (J1200) IV STA (03:37)
[2017-04-27] MEDS ORDERED: PROMETHAZINE INJ 25 MG/ML VIAL (J2550) IV ONE (03:45)
[2017-04-27] MEDS ORDERED: KETOROLAC 30 MG/ML VIAL (J1885) IV ONE (03:45)
[2017-04-27] MEDS ORDERED: HYDROmorphone HCL 1 MG/ML SYRINGE (J1170) IV ONE (03:45)
[2017-04-27 05:39] VITALS: BP 121/62
[2017-04-27] MEDS ORDERED: FIOR1CAP PO (06:02)
== END 2017-04-27 06:52 | disposition home or self-care (01) ==
LOC: M ED 04-27 00:03
DX: G43.909 Migraine, unspecified, not intractable, without status migrainosus (principal); Q07.00 Arnold-Chiari syndrome without spina bifida or hydrocephalus; F17.200 Nicotine dependence, unspecified, uncomplicated
CPT/HCPCS: 96374; 96375; 99283; J1170; J1200; J1885

== ENCOUNTER 2017-11-13 09:03 | Emergency (ER) | payer OTHER ==
[2017-11-13 10:02] LABS: MEAN CORPUSCULAR HEMOGLOBIN 28.6 pg (27.0-33.0); MEAN CORPUSCULAR HGB CONC 33.8 g/dl (32.0-36.5); MEAN CORPUSCULAR VOLUME 84.8 fl (80.0-96.0); PLATELET COUNT, AUTOMATED 250 10^3/uL (150-450); RED CELL DISTRIBUTION WIDTH 13.7 % (11.5-14.5); WHITE BLOOD COUNT 12.8 10^3/uL (4.0-10.0)
[2017-11-13 10:49] LABS: ANION GAP 7 MEQ/L (8-16); BLOOD UREA NITROGEN 9 MG/DL (7-18); CALCIUM LEVEL 8.5 MG/DL (8.5-10.1); CARBON DIOXIDE LEVEL 25 MEQ/L (21-32); CHLORIDE LEVEL 109 MEQ/L (98-107); CREATININE FOR GFR 0.75 MG/DL (0.55-1.02); GLOMERULAR FILTRATION RATE > 60.0 (>60); GLUCOSE, FASTING 93 MG/DL (70-105); MAGNESIUM LEVEL 2.4 MG/DL (1.8-2.4); SODIUM LEVEL 141 MEQ/L (136-145)
[2017-11-13 11:21] LABS: T UPTAKE 32 % (30-39); THYROXINE (T4) 9.9 UG/DL (4.5-12.0)
[2017-11-13 11:43] LABS: METHADONE URINE NEGATIVE (NEGATIVE)
[2017-11-13] MEDS: KETOROLAC 30 MG/ML VIAL (J1885) IV (12:03)
== END 2017-11-13 14:43 | disposition home or self-care (01) ==
LOC: M ED 09:03
DX: R00.2 Palpitations (principal); Z79.899 Other long term (current) drug therapy; Z97.5 Presence of (intrauterine) contraceptive device; F17.210 Nicotine dependence, cigarettes, uncomplicated
CPT/HCPCS: J1885

== ENCOUNTER 2017-12-15 17:27 | Emergency (ER) | payer OTHER ==
[2017-12-15] MEDS: NS 1,000 ML IV (18:22)
[2017-12-15] MEDS: KETOROLAC 30 MG/ML VIAL (J1885) IV (18:22)
[2017-12-15] MEDS: diphenhydrAMINE INJ 50MG/ML VIAL (J1200) IV (18:25)
[2017-12-15] MEDS: METOCLOPRAMIDE INJ 10MG/2ML VIAL (J2765) IV (18:28)
== END 2017-12-15 20:09 | disposition home or self-care (01) ==
LOC: M ED 17:27
DX: G43.909 Migraine, unspecified, not intractable, without status migrainosus (principal); F17.200 Nicotine dependence, unspecified, uncomplicated; F43.12 Post-traumatic stress disorder, chronic; Q07.01 Arnold-Chiari syndrome with spina bifida; Z87.820 Personal history of traumatic brain injury
CPT/HCPCS: J1200